=== PATIENT | male | born 1995 | race Caucasian/White ===

== ENCOUNTER 2019-06-30 08:32 | Outpatient (CLI) | payer OTHER ==
[2019-06-30] MEDS ORDERED: LIDOCAINE-MPF 1%, 5ML ONE (08:43)
[2019-06-30] MEDS ORDERED: LIDOCAINE 1%, 10ML ONE ×2 (08:43→09:38)
[2019-06-30] MEDS ORDERED: OMNIPAQUE 300 MG/ML, 10ML VIAL ONE (09:00)
== END 2019-06-30 23:59 | disposition home or self-care (01) ==
LOC: RAD 08:32
PROVIDERS: ATTEND Orthopaedic Surgery Adult Reconstructive Orthopaedic Surgery
DX: M25.551 Pain in right hip (principal); M25.552 Pain in left hip; M25.512 Pain in left shoulder; S73.191A Other sprain of right hip, initial encounter; X58.XXXA Exposure to other specified factors, initial encounter; Y93.89 Activity, other specified; Y92.89 Other specified places as the place of occurrence of the external cause; Y99.8 Other external cause status
CPT/HCPCS: 27093; 73221; 73525; 73722; J3490; Q9967